=== PATIENT | female | born 1995 | race Two or more races ===

== ENCOUNTER 2019-08-25 18:24 | Inpatient (IN) | payer OTHER ==
[~2019-08-25] VITALS: Ht 154.9 cm; Wt 73.0 kg
[2019-08-25] MEDS ORDERED: PRENATABS RX T1 EACH PO (18:52)
== END 2019-08-29 11:27 | disposition home or self-care (01) | DRG 788 ==
LOC: OB/GYN 18:24 → LDR 18:24 → OB/GYN 08-26 20:33
PROVIDERS: ADMIT Obstetrics & Gynecology; ATTEND Obstetrics & Gynecology
PROC: 3E0P7VZ Introduction of Hormone into Female Reproductive, Via Natural or Artificial Opening (ICD-10-PCS; 2019-08-25)
PROC: 4A1HXCZ Monitoring of Products of Conception, Cardiac Rate, External Approach (ICD-10-PCS; 2019-08-25)
PROC: 3E033VJ Introduction of Other Hormone into Peripheral Vein, Percutaneous Approach (ICD-10-PCS; 2019-08-26)
PROC: 10D00Z1 Extraction of Products of Conception, Low, Open Approach (ICD-10-PCS; principal; 2019-08-26 21:00)
DX: O74.7 Failed or difficult intubation for anesthesia during labor and delivery (principal); O48.0 Post-term pregnancy; Z3A.40 40 weeks gestation of pregnancy; Z37.0 Single live birth

== ENCOUNTER 2019-09-03 18:42 | Emergency (ER) | payer OTHER ==
[~2019-09-03] VITALS: Ht 154.9 cm; Wt 65.8 kg
[~2019-09-03 18:42] MED LIST: PRENATABS RX T1 EACH PO
== END 2019-09-03 21:38 | disposition home or self-care (01) ==
LOC: ER 18:42
DX: O86.09 Infection of obstetric surgical wound, other surgical site (principal); N99.843 Postprocedural seroma of a genitourinary system organ or structure following other procedure; B96.1 Klebsiella pneumoniae [K. pneumoniae] as the cause of diseases classified elsewhere